=== PATIENT | female | born 1950 | race Caucasian/White ===

== ENCOUNTER 2018-07-28 13:46 | Inpatient (IN) ==
[2018-07-28] MEDS ORDERED: LORazepam 1 MG Tablet PO ONE (14:40)
--- NOTE | 2018-07-28 14:40 | ED ---
HPI General Chief complaint: Psychiatric Symptoms Stated complaint: Time Seen by Provider: 07/28/18 14:35 History of Present Illness HPI narrative: 68-year-old female with a history of schizophrenia is brought to the emergency department under Phelps act for evaluation of erratic behavior and not taking her medications. Per the Phelps act report the patient's brother states that the patient has been acting strangely and not taking her medications. Patient denies any suicidal or homicidal ideations. Patient denies having any history of medical or psychiatric disease. Denies auditory or visual hallucinations. Denies alcohol or drug use. Denies any physical complaints. She is awake, alert and oriented x4. Related Data Home Medications Medication Instructions Recorded Confirmed Unable to Obtain Home Meds 07/28/18 07/28/18 Allergies Allergy/AdvReac Type Severity Reaction Status Date / Time No Known Allergies Allergy Verified 07/28/18 14:31 Review of Systems ROS: all other systems reviewed are negative PMFSH Social History Social History Substance History: No History of Abuse Second Hand Smoke Exposure: Yes Smoking Status: Current every day smoker Tobacco Type: Cigarettes How Often Do You Have a Drink Containing Alcohol: Monthly or less Recent Travel in [facility] within the Last 8 Weeks: No Recent Out of Country Travel within the Last 8 Weeks: No Immunization History Tetanus Immunization: Unsure Exam Narrative Exam Narrative: GENERAL: Well-nourished and well-developed pleasant patient in no acute distress who is nontoxic appearing. SKIN: Warm and dry. HEAD: Normocephalic and atraumatic. EYES: No injection, drainage, or hyphema noted. PERRLA. EOMI. ENT: No nasal drainage noted. Oropharynx is clear. NECK: Supple and the trachea is midline. CARDIOVASCULAR: Regular rate and rhythm. RESPIRATORY: Breath sounds are equal bilaterally with no accessory muscle use, wheezing, rhonchi, or crackles. GASTROINTESTINAL: Abdomen is soft, non-tender, and nondistended. MUSCULOSKELETAL: No obvious deformities, swelling, cyanosis, or ecchymosis is present throughout the upper and lower extremities. Patient has full range of motion without any signs of neurovascular compromise. Distal pulses are 2+ throughout. NEUROLOGICAL: Awake, alert, and oriented. Normal speech and gait. Cranial nerves are grossly intact. Course Initial Documented Vital Signs Temperature 98.4 F 07/28/18 14:02 Respiratory Rate 18 07/28/18 14:02 Blood Pressure 190/91 H 07/28/18 14:02 Pulse Oximetry 96 07/28/18 14:02 Last Documented Vital Signs Temperature 98.4 F 07/28/18 22:47 Pulse Rate 65 07/28/18 22:47 Respiratory Rate 16 07/28/18 22:47 Blood Pressure 157/70 H 07/28/18 22:47 Pulse Oximetry 99 07/28/18 22:47 Medical Decision Making MDM Narrative Medical decision making narrative: Patient presents under a Phelps act. Heart rate and blood pressure elevated however patient is currently agitated. Therefore Ativan 1 mg orally has been ordered. Physical examination is unremarkable. Patient has no medical complaints to report. Psych screen has been ordered. The laboratory results are unremarkable. The patient is medically cleared for psychiatric evaluation and disposition. Patient is noted to have leukocytes and bacteria in her urine. She is given Keflex 500 mg p.o. every 8 hours during her stay here in the ER. Patient will be continued on antibiotics on admission or discharge. Medical Screen Exam Complete: Yes Emergency Medical Condition: Yes Differential Diagnosis Differential Diagnosis: Differential: Depression versus adjustment reaction versus anxiety versus PTSD versus psychosis NOS versus mood disorder NOS versus substance induced mood disorder versus ODD versus adjustment reaction versus schizophrenia versus bipolar disorder versus schizoaffective versus electrolyte abnormality versus dementia versus malingering. Lab Data Result diagrams: 07/28/18 14:38 07/28/18 14:38 Lab Results 07/28/18 07/28/18 07/28/18 Range/Units 14:38 14:38 14:40 WBC 9.3 (4.0-11.0) th/mm3 RBC 4.96 (4.00-5.30) mil/mm3 Hgb 15.6 H (11.6-15.3) gm/dL Hct 44.4 (35.0-46.0) % MCV 89.6 (80.0-100.0) fL MCH 31.5 (27.0-34.0) pg MCHC 35.2 (32.0-36.0) % RDW 13.2 (11.6-17.2) % Plt Count 400 (150-450) th/mm3 MPV 6.7 L (7.0-11.0) fL Neut % (Auto) 79.7 H (16.0-70.0) % Lymph % (Auto) 14.6 (9.0-44.0) % [place] % (Auto) 5.0 (0.0-8.0) % Eos % (Auto) 0.5 (0.0-4.0) % Baso % (Auto) 0.2 (0.0-2.0) % Neut # (Auto) 7.4 (1.8-7.7) th/mm3 Lymph # (Auto) 1.4 (1.0-4.8) th/mm3 [place] # (Auto) 0.5 (0.0-0.9) th/mm3 Eos # (Auto) 0.0 (0.0-0.4) th/mm3 Baso # (Auto) 0.0 (0.0-0.2) th/mm3 WBC Differential . Differential Comment Auto diff final Sodium 136 (136-145) meq/L Potassium 4.1 (3.5-5.1) meq/L Chloride 100 (98-107) meq/L Carbon Dioxide 28.3 (21.0-32.0) meq/L Anion Gap 8 (5-15) meq/L BUN 8 (7-18) mg/dL Creatinine 0.73 (0.50-1.00) mg/dL Estimated GFR 79 L (>89) mL/min Random Glucose 98 (74-106) mg/dL Calcium 9.0 (8.5-10.1) mg/dL Magnesium 2.2 (1.5-2.5) mg/dL Total Bilirubin 0.8 (0.2-1.0) mg/dL AST 20 (15-37) U/L ALT 23 (10-53) U/L Alkaline Phosphatase 99 (45-117) U/L Total Protein 7.7 (6.4-8.2) g/dL Albumin 3.9 (3.4-5.0) g/dL TSH 3.190 (0.358-3.740) uIU/mL Urine Color Straw (Yellw/Straw) Urine Clarity Clear (Clear) Urine pH 7.0 (5.0-8.5) Ur Specific [place] 1.004 (1.002-1.035) Urine Protein Negative (Neg-Trace) mg/dL Urine Glucose (UA) Negative (Negative) mg/dL Urine Ketones Negative (Negative) mg/dL Urine Occult Blood Negative (Negative) Urine Nitrate Negative (Negative) Urine Bilirubin Negative (Negative) Urine Urobilinogen Less than 2 (Less than 2) mg/dL Ur Leukocyte Esterase Moderate H (Negative) Urine RBC Less than 1 (0-3) /hpf Urine WBC 26 H (0-5) /hpf Ur Squamous Epith Cells 1 (0-5) /hpf Urine Bacteria Rare H (None) /hpf Micro UA Comment Culture indicated Ur Microscopic Review Not Reportable Urine Culture Comments Culture indicated Urine Opiates Screen (Neg) Ur Barbiturates Screen (Neg) Ur Amphetamines Screen (Neg) U Benzodiazepines Scrn (Neg) Urine Cocaine Screen (Neg) U Cannabinoids Screen (Neg) Serum Alcohol Less than 3 (0-5) mg/dL 07/28/18 Range/Units 14:40 WBC (4.0-11.0) th/mm3 RBC (4.00-5.30) mil/mm3 Hgb (11.6-15.3) gm/dL Hct (35.0-46.0) % MCV (80.0-100.0) fL MCH (27.0-34.0) pg MCHC (32.0-36.0) % RDW (11.6-17.2) % Plt Count (150-450) th/mm3 MPV (7.0-11.0) fL Neut % (Auto) (16.0-70.0) % Lymph % (Auto) (9.0-44.0) % [place] % (Auto) (0.0-8.0) % Eos % (Auto) (0.0-4.0) % Baso % (Auto) (0.0-2.0) % Neut # (Auto) (1.8-7.7) th/mm3 Lymph # (Auto) (1.0-4.8) th/mm3 [place] # (Auto) (0.0-0.9) th/mm3 Eos # (Auto) (0.0-0.4) th/mm3 Baso # (Auto) (0.0-0.2) th/mm3 WBC Differential Differential Comment Sodium (136-145) meq/L Potassium (3.5-5.1) meq/L Chloride (98-107) meq/L Carbon Dioxide (21.0-32.0) meq/L Anion Gap (5-15) meq/L BUN (7-18) mg/dL Creatinine (0.50-1.00) mg/dL Estimated GFR (>89) mL/min Random Glucose (74-106) mg/dL Calcium (8.5-10.1) mg/dL Magnesium (1.5-2.5) mg/dL Total Bilirubin (0.2-1.0) mg/dL AST (15-37) U/L ALT (10-53) U/L Alkaline Phosphatase (45-117) U/L Total Protein (6.4-8.2) g/dL Albumin (3.4-5.0) g/dL TSH (0.358-3.740) uIU/mL Urine Color (Yellw/Straw) Urine Clarity (Clear) Urine pH (5.0-8.5) Ur Specific [place] (1.002-1.035) Urine Protein (Neg-Trace) mg/dL Urine Glucose (UA) (Negative) mg/dL Urine Ketones (Negative) mg/dL Urine Occult Blood (Negative) Urine Nitrate (Negative) Urine Bilirubin (Negative) Urine Urobilinogen (Less than 2) mg/dL Ur Leukocyte Esterase (Negative) Urine RBC (0-3) /hpf Urine WBC (0-5) /hpf Ur Squamous Epith Cells (0-5) /hpf Urine Bacteria (None) /hpf Micro UA Comment Ur Microscopic Review Urine Culture Comments Urine Opiates Screen Neg (Neg) Ur Barbiturates Screen Neg (Neg) Ur Amphetamines Screen Neg (Neg) U Benzodiazepines Scrn Neg (Neg) Urine Cocaine Screen Neg (Neg) U Cannabinoids Screen Neg (Neg) Serum Alcohol (0-5) mg/dL Discharge Plan Discharge Disposition Patient Disposition: Sign Out(ED Internal Use Only) Discharge Condition Condition: Stable Discharge Details Diagnosis: Schizophrenia, UTI (urinary tract infection) Physicians Team ED Provider: Dary Aburto ED Midlevel Provider: Pro Baldwin Primary Care Provider: UNKNOWN, Rxs /Orders / Referrals /Forms Prescriptions: No Action Unable to Obtain Home Meds RF: 0 Status ED Status: Medically Cleared
[2018-07-28 15:19] LABS: Baso % (Auto) 0.2 % (0.0-2.0); Eos % (Auto) 0.5 % (0.0-4.0); Hematocrit 44.4 % (35.0-46.0); Hemoglobin 15.6 gm/dL (11.6-15.3); Lymph # (Auto) 1.4 th/mm3 (1.0-4.8); Lymph % (Auto) 14.6 % (9.0-44.0); Mean Corpuscular HGB Conc 35.2 % (32.0-36.0); Mean Corpuscular Hemoglobin 31.5 pg (27.0-34.0); Mean Corpuscular Volume 89.6 fL (80.0-100.0); Mean Platelet Volume 6.7 fL (7.0-11.0); Mono # (Auto) 0.5 th/mm3 (0.0-0.9); Neut # (Auto) 7.4 th/mm3 (1.8-7.7); Neut % (Auto) 79.7 % (16.0-70.0); Platelet Count 400 th/mm3 (150-450); Red Blood Count 4.96 mil/mm3 (4.00-5.30); Red Cell Distribution Width 13.2 % (11.6-17.2); White Blood Count 9.3 th/mm3 (4.0-11.0)
[2018-07-28 15:56] LABS: Alkaline Phosphatase 99 U/L (45-117); Total Protein 7.7 g/dL (6.4-8.2)
[2018-07-28 15:57] LABS: Alanine Aminotransferase 23 U/L (10-53); Albumin 3.9 g/dL (3.4-5.0); Anion Gap 8 meq/L (5-15); Aspartate Aminotransferase 20 U/L (15-37); Blood Urea Nitrogen 8 mg/dL (7-18); Carbon Dioxide 28.3 meq/L (21.0-32.0); Chloride 100 meq/L (98-107); Glomerular Filtration Rate 79 mL/min (>89); Glucose,Random 98 mg/dL (74-106); Magnesium 2.2 mg/dL (1.5-2.5); Potassium 4.1 meq/L (3.5-5.1); Sodium 136 meq/L (136-145)
[2018-07-28 19:45] LABS: Bacteria,Urine Rare /hpf; Bilirubin,Urine Negative (Negative); Clarity,Urine Clear (Clear); Color,Urine Straw (Yellw/Straw); Glucose,Urine (UA) Negative (Negative); Leukocyte Esterase,Urine Moderate (Negative); Nitrite,Urine Negative (Negative); Specific Gravity,Urine 1.004 (1.002-1.035); Squamous Epithelial Cell,Urine 1 /hpf (0-5)
[2018-07-28 19:51] LABS: Amphetamine Screen,Urine Neg (Neg); Barbiturate Screen,Urine Neg (Neg)
[2018-07-28 19:52] LABS: Cannabinoid Screen,Urine Neg (Neg); Cocaine Screen,Urine Neg (Neg)
[2018-07-28 20:00] LABS: Opiate Screen,Urine Neg (Neg)
[2018-07-29] MEDS ORDERED: LORazepam 1 MG Tablet PO PRN (11:05)
[2018-07-29] MEDS ORDERED: Haloperidol Inj 5 MG/ML Ampul IV.PUSH PRN (11:05)
[2018-07-29] MEDS ORDERED: Bisacodyl 10 MG Supp RECTAL PRN (11:05)
[2018-07-29] MEDS ORDERED: Aluminum/Magnesium/Simethacone Susp 30 ML UDC PO PRN (11:05)
--- NOTE | 2018-07-29 13:01 | P.HPPSY ---
Provisional Diagnosis Admission Date: July 29, 2018 11:06 [place] I.: Unspecified psychosis Competence Certification of Person's Competence To Provide Express and Informed Consent I have personally examined Jenny Croft, a person being served at [facility] on, July 29, 2018 1255. Express and informed consent means consent voluntarily given in writing, by a competent person, after sufficient explanation and disclosure of the subject matter involved to enable the person to make a knowing and willful decision without any element of force, fraud, deceit, duress, or other form of constraint or coercion. This person is 18 years of age or older, is not now known to be incompetent to consent to treatment with a guardian advocate, and does not have a health care surrogate or proxy currently making medical treatment decisions. I have found this person to be one of the following: [] Competent to provide express and informed consent, as defined above, for voluntary admission to this facility and is competent to provide express and informed consent for treatment. He/she has the consistent capacity to make well reasoned, willful, and knowing decisions concerning his or her medical or mental health treatment. The person fully and consistently understands the purpose of the admission for examination/placement and is fully capable of personally exercising all rights assured [place] [] Incompetent to provide express and informed consent to voluntary admission, and this is incompetent to provide express and informed consent to treatment. The person must be transferred to involuntary status and a petition for a guardian advocate filed with the Circuit Court. [x] Refusing to provide express and informed consent to voluntary admission but is competent to provide express and informed consent for treatment. The person must be discharged or transferred to involuntary status. Form shall be completed within 24 hours of a person's arrival at the receiving facility and filed in the clinical record of each person: 1. Admitted on a voluntary basis 2. Permitted to provide express and informed consent to his/her own treatment 3. Allowed to transfer from involuntary to voluntary status 4. Prior to permitting a person to consent to his or her own treatment after having been previously found incompetent to consent to treatment. History of Present Illness Capacity: Has capacity History of Present Illness: The patient is a 68-year-old woman, domiciled with family, she is , but , 2 kids, she has reported psychiatric history of schizophrenia, she denies history of substance abuse, alcohol use, denies medical history, who is brought to the emergency department under Phelps act for evaluation of erratic behavior and not taking her medications. Per the Phelps act report the patient's brother states that the patient has been acting strangely and not taking her medications. Patient denies any suicidal or homicidal ideations. Patient denies having any history of medical or psychiatric disease. Denies auditory or visual hallucinations. Denies alcohol or drug use. Denies any physical complaints. She is awake, alert and oriented x4. The patient says that she does not know what she is doing here. She has very poor insight of her psychiatric condition. She has been selectively mute. When I asked her about her psychiatric history, she says that she does not want to talk about it. She is very irritable, verbally hostile. No collateral information available at this moment. As per nurse in charge, the patient has been mostly inside her room, at times she is not walking in the ER, internally preoccupied, talking to herself, very irritable refusing to speak with the nurses. PPHx: Schizophrenia, unknown details PMHx: She denies medical history Family Hx: Denies family psychiatric history Substance Hx: Denies the use of illegal drugs or alcohol Social Hx: Patient is domiciled with family members, 2 kids, but - Inpatient Certification I certify that the inpatient services were ordered in accordance with Medicare regulations governing the order. This includes certification that hospital inpatient services are reasonable and necessary and in the case of services not specified as inpatient-only under 42 CFR 419.22(n), that they are appropriately provided as inpatient services in accordance to with the 2-midnight benchmark under 43 CFR 412.3(e) I certify that inpatient psychiatric hospital services are medically necessary. Evaluation and treatment and/or diagnostic testing are expected to improve the patient's condition. The patient needs on a daily basis, active treatment furnished directly by or requiring the supervision of inpatient psychiatric facility personnel. Estimated Total Length of Stay (Days): 7 Plans for Post Hospital Care: Home PMFSH - History History Provided By: Patient - Tobacco History Second Hand Smoke Exposure: Yes Tobacco Use In Past 30 Days: Yes Smoking Status: Current every day smoker Tobacco Type: Cigarettes - Alcohol History How Often Do You Have a Drink Containing Alcohol: Monthly or less - Substance Use History Substance History: No History of Abuse - Travel History Recent Travel in the [place] Within the Last 8 Weeks: No Recent Travel Out of the Country Within the Last 8 Weeks: No - Immunization History Tetanus Immunization: Unsure Medications and Allergies Active Medications: Active Medications Al Hydrox/Mg Hydrox/Simethicone (Mag-Al Plus Susp Liq) 30 ml PO Q6H PRN PRN Reason: DYSPEPSIA Al Hydroxide/Mg Hydroxide (Milk Of Magnesia Liq) 30 ml PO Q12H PRN PRN Reason: Mild Constipation Bisacodyl (Dulcolax Supp) 10 mg RECTAL DAILY PRN PRN Reason: SEVERE CONSITIPATION Cephalexin Monohydrate (Keflex) 500 mg PO Q8HR ZACHARY Last Admin: 07/29/18 12:28 Dose: Not Given Flumazenil (Romazicon Inj) 0.2 mg IV.PUSH Q1M PRN PRN Reason: OVERSEDATION Haloperidol Lactate (Haldol Inj) 1 mg IV.PUSH Q15M PRN PRN Reason: for severe agitation Lactulose (Lactulose Liq) 30 ml PO DAILY PRN PRN Reason: SEVERE CONSITIPATION Lorazepam (Ativan) 1 mg PO Q4H PRN PRN Reason: for CIWA 8-10 Lorazepam (Ativan) 2 mg PO Q2H PRN PRN Reason: for CIWA 11-14 Lorazepam (Ativan Inj) 2 mg IV.PUSH Q2H PRN PRN Reason: for CIWA 11-14 Lorazepam (Ativan Inj) 2 mg IV.PUSH Q1H PRN PRN Reason: for CIWA 15-20 Lorazepam (Ativan Inj) 2 mg IV.PUSH Q15M PRN PRN Reason: for CIWA > 20 Lorazepam (Ativan Inj) 1 mg IV.PUSH Q4H PRN PRN Reason: for CIWA 8-10 Quetiapine Fumarate (Seroquel) 25 mg PO BID ZACHARY Senna/Docusate Sodium (Rachell-Colace) 1 tab PO BID ZACHARY Sennosides (Senokot) 17.2 mg PO Q12H PRN PRN Reason: Moderate Constipation Allergies Allergy/AdvReac Type Severity Reaction Status Date / Time No Known Allergies Allergy Verified 07/28/18 14:31 Home Medications Medication Instructions Recorded Confirmed Type fluphenazine HCl 10 mg PO HS 07/29/18 07/29/18 History losartan 50 mg PO DAILY 07/29/18 07/29/18 History metformin 500 mg PO BID 07/29/18 07/29/18 History trihexyphenidyl 2 mg PO HS 07/29/18 07/29/18 History Results - Labs CBC & Chem 7: 07/28/18 14:38 07/28/18 14:38 Labs: Laboratory Results - last 24 hr 07/28/18 07/28/18 07/28/18 14:38 14:38 14:40 WBC 9.3 RBC 4.96 Hgb 15.6 H Hct 44.4 MCV 89.6 MCH 31.5 MCHC 35.2 RDW 13.2 Plt Count 400 MPV 6.7 L Neut % (Auto) 79.7 H Lymph % (Auto) 14.6 [place] % (Auto) 5.0 Eos % (Auto) 0.5 Baso % (Auto) 0.2 Neut # (Auto) 7.4 Lymph # (Auto) 1.4 [place] # (Auto) 0.5 Eos # (Auto) 0.0 Baso # (Auto) 0.0 WBC Differential . Differential Comment Auto diff final Sodium 136 Potassium 4.1 Chloride 100 Carbon Dioxide 28.3 Anion Gap 8 BUN 8 Creatinine 0.73 Estimated GFR 79 L Random Glucose 98 Calcium 9.0 Magnesium 2.2 Total Bilirubin 0.8 AST 20 ALT 23 Alkaline Phosphatase 99 Total Protein 7.7 Albumin 3.9 TSH 3.190 Urine Color Straw Urine Clarity Clear Urine pH 7.0 Ur Specific [place] 1.004 Urine Protein Negative Urine Glucose (UA) Negative Urine Ketones Negative Urine Occult Blood Negative Urine Nitrate Negative Urine Bilirubin Negative Urine Urobilinogen Less than 2 Ur Leukocyte Esterase Moderate H Urine RBC Less than 1 Urine WBC 26 H Ur Squamous Epith Cells 1 Urine Bacteria Rare H Micro UA Comment Culture indicated Ur Microscopic Review Not Reportable Urine Culture Comments Culture indicated Urine Opiates Screen Ur Barbiturates Screen Ur Amphetamines Screen U Benzodiazepines Scrn Urine Cocaine Screen U Cannabinoids Screen Serum Alcohol Less than 3 07/28/18 14:40 WBC RBC Hgb Hct MCV MCH MCHC RDW Plt Count MPV Neut % (Auto) Lymph % (Auto) [place] % (Auto) Eos % (Auto) Baso % (Auto) Neut # (Auto) Lymph # (Auto) [place] # (Auto) Eos # (Auto) Baso # (Auto) WBC Differential Differential Comment Sodium Potassium Chloride Carbon Dioxide Anion Gap BUN Creatinine Estimated GFR Random Glucose Calcium Magnesium Total Bilirubin AST ALT Alkaline Phosphatase Total Protein Albumin TSH Urine Color Urine Clarity Urine pH Ur Specific [place] Urine Protein Urine Glucose (UA) Urine Ketones Urine Occult Blood Urine Nitrate Urine Bilirubin Urine Urobilinogen Ur Leukocyte Esterase Urine RBC Urine WBC Ur Squamous Epith Cells Urine Bacteria Micro UA Comment Ur Microscopic Review Urine Culture Comments Urine Opiates Screen Neg Ur Barbiturates Screen Neg Ur Amphetamines Screen Neg U Benzodiazepines Scrn Neg Urine Cocaine Screen Neg U Cannabinoids Screen Neg Serum Alcohol Exam Vital signs: Vital Signs 07/28/18 14:02 07/28/18 14:06 07/28/18 18:18 Temperature 98.4 F 98.4 F 98.8 F Pulse Rate 102 H 78 Respiratory Rate 18 18 18 Blood Pressure 190/91 H 190/91 H 154/72 H Pulse Oximetry 96 96 100 07/28/18 22:47 07/29/18 12:26 Temperature 98.4 F 98.4 F Pulse Rate 65 67 Respiratory Rate 16 18 Blood Pressure 157/70 H 147/68 H Pulse Oximetry 99 98 Intake & Output 07/28/18 07/29/18 07/29/18 18:59 06:59 18:59 Weight 63.503 kg Mental Status Examination Appearance: Appropriate Consciousness: Alert Orientation: x4 Motor Activity: Normal gait Speech: Hesitant Language: Adequate Fund of Knowledge: Adequate Attention and Concentration: Adequate Memory: Unremarkable Mood: Appropriate Affect: Appropriate Thought Process & Associations: Intact Thought Content: Appropriate Hallucination Type: None Delusion Type: None Suicidal Ideation: No Suicidal Plan: No Suicidal Intention: No Homicidal Ideation: No Homicidal Plan: No Homicidal Intention: No Insight: Poor Judgment: Poor Assessment and Plan - Assessment (1) Schizophrenia Code(s): F20.9 - Schizophrenia, unspecified Status: Acute - Plan Plan: As per Phelps act the patient has history of schizophrenia, has been allegedly bizarre, not being herself, not taking her medications. On my psychiatric evaluation the patient is selectively mute, poorly cooperative, demonstrate a very poor insight of her psychiatric conditions. She has been described as an internally preoccupied, disruptive in the unit. We do not have details about her psychiatric history. Will be kept for psychiatric admission for stabilization and safety. We will start Seroquel 25 mg twice daily. Collateral information is crucial to complete psychiatric assessment. Transfer to 2600 unit. Will consult psychiatry for second opinion. Justification for Continued Inpatient Stay: To be admitted. (1) Schizophrenia Qualifiers: Schizophrenia type: unspecified Qualified Code(s): F20.9 - Schizophrenia, unspecified
[2018-07-29] MEDS: QUEtiapine 25 MG Tablet PO SCH (21:19)
[2018-07-29] MEDS: Senna/Docusate Sodium 8.6/50 MG Tablet PO SCH (21:20)
--- NOTE | 2018-07-30 13:59 | P.PNPSY ---
Subjective Remarks: This is a request for second opinion. Admission note was reviewed and I agree with the history. Patient was seen and case was discussed with nursing. Patient remains irritable and oppositional during the interview. She is disheveled and responding to internal stimuli. She is a poor historian and refusing to answer most questions Review of Systems All other systems reviewed negative except as stated in HPI Mental Status Examination Appearance: Appropriate Consciousness: Alert Orientation: x4 Motor Activity: Normal gait Speech: Hesitant Language: Adequate Fund of Knowledge: Adequate Attention and Concentration: Adequate Memory: Unremarkable Mood: Appropriate Affect: Appropriate Thought Process & Associations: Intact Thought Content: Appropriate Hallucination Type: None Delusion Type: None Suicidal Ideation: No Suicidal Plan: No Suicidal Intention: No Homicidal Ideation: No Homicidal Plan: No Homicidal Intention: No Insight: Poor Judgment: Poor Assessment and Plan - Assessment (1) Schizophrenia Code(s): F20.9 - Schizophrenia, unspecified Status: Acute - Plan Plan: I agree with the first opinion to continue petition. Criteria include acute psychosis Justification for Continued Inpatient Stay: Patient would decompensate in a less restrictive setting (1) Schizophrenia Qualifiers: Schizophrenia type: unspecified Qualified Code(s): F20.9 - Schizophrenia, unspecified
[2018-07-30] MEDS: Senna/Docusate Sodium 8.6/50 MG Tablet PO SCH ×2 (18:00→22:01)
[2018-07-30] MEDS: QUEtiapine 25 MG Tablet PO SCH ×2 (18:00→22:01)
[2018-07-31] MEDS: Senna/Docusate Sodium 8.6/50 MG Tablet PO SCH ×2 (11:34→22:17)
[2018-07-31] MEDS: QUEtiapine 25 MG Tablet PO SCH (11:34)
--- NOTE | 2018-07-31 13:19 | P.PNPSY ---
Subjective Remarks: Patient remains irritable and angry and oppositional. She is refusing her Seroquel. She is minimally engaged during the interview, poor eye contact, disheveled, continues to have poor insight concerning her admission and her mental health. Claims she is not hearing voices but could be responding to internal stimuli Review of Systems All other systems reviewed negative except as stated in HPI Mental Status Examination Appearance: Appropriate Consciousness: Alert Orientation: x4 Motor Activity: Normal gait Speech: Hesitant Language: Adequate Fund of Knowledge: Adequate Attention and Concentration: Adequate Memory: Unremarkable Mood: Angry, Oppositional Affect: Blunt Thought Process & Associations: Intact Thought Content: Delusional Hallucination Type: None Delusion Type: Paranoid (Could be responding to internal stimuli) Suicidal Ideation: No Suicidal Plan: No Suicidal Intention: No Homicidal Ideation: No Homicidal Plan: No Homicidal Intention: No Insight: Poor Judgment: Poor Assessment and Plan - Assessment (1) Schizophrenia Code(s): F20.9 - Schizophrenia, unspecified Status: Acute - Plan Plan: We will hold patient's medications because we will change her capacity to make decisions given her noncompliance with medications .we will change patient's competence to where she is not competent for medications and a proxy will be found. The purpose is to provide an antipsychotic that could be injected if she refuses p.o. dose. Given her history of schizophrenia Justification for Continued Inpatient Stay: Patient would decompensate in a less restrictive setting (1) Schizophrenia Qualifiers: Schizophrenia type: unspecified Qualified Code(s): F20.9 - Schizophrenia, unspecified
[2018-08-01] MEDS: Senna/Docusate Sodium 8.6/50 MG Tablet PO SCH ×2 (08:45→21:29)
[2018-08-01 09:18] LABS: Calcium 9.3 mg/dL (8.5-10.1)
[2018-08-01 09:20] LABS: Chol/HDL Ratio 4.37 Ratio; HDL Cholesterol 54.6 mg/dL (40.0-60.0)
[2018-08-01] MEDS ORDERED: QUEtiapine 25 MG Tablet PO SCH (10:13)
--- NOTE | 2018-08-01 10:17 | P.PNPSY ---
Subjective Remarks: Patient was seen today for psychiatric reevaluation. The patient continues to be guarded, minimally engageable in a conversation. Refuses to talk to me. Requesting to be discharged. Does not answer to any of my questions. She has been reported to be quite isolated, no answering questions, internally preoccupied, talking to herself. Mental Status Examination Appearance: Appropriate Consciousness: Alert Orientation: x4 Motor Activity: Normal gait Speech: Hesitant Language: Adequate Fund of Knowledge: Adequate Attention and Concentration: Adequate Memory: Unremarkable Mood: Angry, Oppositional Affect: Blunt Thought Process & Associations: Intact Thought Content: Delusional Hallucination Type: None Delusion Type: Bizarre Suicidal Ideation: No Suicidal Plan: No Suicidal Intention: No Homicidal Ideation: No Homicidal Plan: No Homicidal Intention: No Insight: Fair Judgment: Impulsive Assessment and Plan - Assessment (1) Schizophrenia Code(s): F20.9 - Schizophrenia, unspecified Status: Acute - Plan Plan: Patient reported as guarded and minimally engageable during the weekend, today seems to be doing better. We will increase Seroquel to 50 mg twice daily. Continue psychiatric hospitalization for stabilization. Support, motivation, psych education provided. Justification for Continued Inpatient Stay: Continue psychiatric admission for stabilization. (1) Schizophrenia Qualifiers: Schizophrenia type: unspecified Qualified Code(s): F20.9 - Schizophrenia, unspecified
[2018-08-01 17:02] LABS: Hemoglobin A1c 5.8 % (4.3-6.0)
[2018-08-02] MEDS: Senna/Docusate Sodium 8.6/50 MG Tablet PO SCH ×2 (08:47→22:52)
--- NOTE | 2018-08-02 13:20 | P.PNPSY ---
Subjective Remarks: The patient was seen today for psychiatric reevaluation. She was found isolated in her room. Continues to be selectively mute, very irritable, visibly paranoid, internally preoccupied. Today she tells me that she does not want to talk to me because "you are not a doctor, you are a terrorist [place] Patient becomes quite agitated during the evaluation, stands up from her bed and left the room. She has been consistently refusing medications. At moments agitated and intrusive in the unit, but not aggressive. She tells me that she has been living with her mother, but minutes later told me that her mother . She seems to be quite inconsistent, illogical, disorganized. Mental Status Examination Appearance: Appropriate Consciousness: Alert Orientation: x4 Motor Activity: Normal gait Speech: Hesitant Language: Adequate Fund of Knowledge: Adequate Attention and Concentration: Adequate Memory: Unremarkable Mood: Angry, Oppositional Affect: Blunt Thought Process & Associations: Intact Thought Content: Delusional Hallucination Type: None Delusion Type: Bizarre Suicidal Ideation: No Suicidal Plan: No Suicidal Intention: No Homicidal Ideation: No Homicidal Plan: No Homicidal Intention: No Insight: Fair Judgment: Impulsive Assessment and Plan - Assessment (1) Schizophrenia Code(s): F20.9 - Schizophrenia, unspecified Status: Acute - Plan Plan: Patient continues to show symptoms of psychosis, paranoia, internal preoccupation, disorganized and agitated behavior. Refusing medications. No collateral information available at the moment. family caseworker will continue trying to reach family members. Justification for Continued Inpatient Stay: Acutely psychotic, continue psychiatric hospitalization. (1) Schizophrenia Qualifiers: Schizophrenia type: unspecified Qualified Code(s): F20.9 - Schizophrenia, unspecified
[2018-08-03] MEDS: Senna/Docusate Sodium 8.6/50 MG Tablet PO SCH ×2 (08:32→21:39)
[2018-08-03] MEDS ORDERED: QUEtiapine 25 MG Tablet PO SCH (09:00)
--- NOTE | 2018-08-03 13:00 | P.PNPSY ---
Subjective Remarks: The patient was seen today for psychiatric reevaluation. The case was widely discussed with nurse in charge. On my psychiatric evaluation today the patient is found in her bed. As usual irritable, oppositional, initially refusing to talk. She is also paranoid, stating that people here looking at her, and trying to poisoned her. I was able today to de-escalate her Jessie. She told me many times that she does not want to talk, but with persistence, she was able to answer that she knows that she is in a hospital, she knows it is August 03, 2017. She knows who is the president of [place]. She does not know the reason she is in the hospital. She denies suicidal and homicidal ideation, she denies visual and auditory hallucinations. The patient is quite irritable, verbally hostile, using profanities very often. I was able to convince the patient to take her medications, Seroquel 50 mg twice daily, she agreed to sign the medication consent. She also asked for her medical medications losartan and metformin. Mental Status Examination Appearance: Appropriate Consciousness: Alert Orientation: x4 Motor Activity: Normal gait Speech: Hesitant Language: Adequate Fund of Knowledge: Adequate Attention and Concentration: Adequate Memory: Unremarkable Mood: Angry, Oppositional Affect: Blunt Thought Process & Associations: Intact Thought Content: Delusional Hallucination Type: None Delusion Type: Bizarre Suicidal Ideation: No Suicidal Plan: No Suicidal Intention: No Homicidal Ideation: No Homicidal Plan: No Homicidal Intention: No Insight: Fair Judgment: Impulsive Assessment and Plan - Assessment (1) Schizophrenia Code(s): F20.9 - Schizophrenia, unspecified Status: Acute - Plan Plan: Continues to be psychotic, paranoid, guarded, irritable, oppositional. But agree with taking medications today. We will start Seroquel 50 mg twice daily. Will start losartan 50 mg, metformin 500 mg, as the patient was taking before. Support, motivation, psych education provided. Justification for Continued Inpatient Stay: Acutely psychotic continue admission. (1) Schizophrenia Qualifiers: Schizophrenia type: unspecified Qualified Code(s): F20.9 - Schizophrenia, unspecified
[2018-08-03] MEDS: QUEtiapine 25 MG Tablet PO SCH ×2 (15:16→21:37)
--- NOTE | 2018-08-04 11:56 | P.PNPSY ---
Subjective Remarks: The patient was seen today for psychiatric reevaluation, she was also seen [place] [address]. In [address] the patient was quite intrusive, verbally hostile, expressing profanities in front of the resistor coater, she was disorganized, very bizarre. She was determined to continue psychiatric hospitalization involuntary and Lynda was appointed as a decision maker. The patient is a little more cooperative, she is more engageable in a conversation, but continues to be irritable, always upset, dysphoric, needs to use frequent profanities to communicate, but at least she has been taking her medications. She is fully oriented x3, she continues to deny suicidal and homicidal ideation , swallow and auditory hallucinations. She is definitely paranoid, wearing several layers of clothe, stating that she does not trust anybody, especially that she does not trust me. Mental Status Examination Appearance: Appropriate Consciousness: Alert Orientation: x4 Motor Activity: Normal gait Speech: Hesitant Language: Adequate Fund of Knowledge: Adequate Attention and Concentration: Adequate Memory: Unremarkable Mood: Angry, Oppositional Affect: Blunt Thought Process & Associations: Intact Thought Content: Delusional Hallucination Type: None Delusion Type: Bizarre Suicidal Ideation: No Suicidal Plan: No Suicidal Intention: No Homicidal Ideation: No Homicidal Plan: No Homicidal Intention: No Insight: Fair Judgment: Impulsive Assessment and Plan - Assessment (1) Schizophrenia Code(s): F20.9 - Schizophrenia, unspecified Status: Acute - Plan Plan: The patient is a still acutely psychotic, paranoid, suspicious, very irritable, with a very poor insight of her psychiatric condition. Continue current psychotropic regimen. Extensive support, motivation, psych education provided. Continue to try to find family member and a safe place to be discharged. Justification for Continued Inpatient Stay: Continue psychiatric admission. (1) Schizophrenia Qualifiers: Schizophrenia type: unspecified Qualified Code(s): F20.9 - Schizophrenia, unspecified
[2018-08-04] MEDS: QUEtiapine 25 MG Tablet PO SCH ×2 (11:58→20:58)
[2018-08-04] MEDS: Senna/Docusate Sodium 8.6/50 MG Tablet PO SCH ×2 (11:58→20:58)
--- NOTE | 2018-08-05 13:36 | P.PNPSY ---
Subjective Remarks: The patient was seen today for psychiatric reevaluation. Case was widely discussed with nursing charge. On my psychiatric evaluation the patient is found in the cabral of the unit. The patient today seems to be more engageable in a conversation, calm or, less irritable. She says that she feels better, that she is ready to be discharged. Reports that she has been taking her medications, denies side effects. Patient may a couple paranoid statements, stating that nurses do not like her, there is "some people here that have been looking at me". She denies suicidal and was ideation, denies visual and auditory hallucinations. The patient is fully oriented x3. No agitation, no aggressive behavior reported. However, she has been refusing on and off her medications. With moment of intrusiveness, but usually redirectable. Mental Status Examination Appearance: Appropriate Consciousness: Alert Orientation: x4 Motor Activity: Normal gait Speech: Hesitant Language: Adequate Fund of Knowledge: Adequate Attention and Concentration: Adequate Memory: Unremarkable Mood: Angry, Oppositional Affect: Blunt Thought Process & Associations: Intact Thought Content: Delusional Hallucination Type: None Delusion Type: Bizarre Suicidal Ideation: No Suicidal Plan: No Suicidal Intention: No Homicidal Ideation: No Homicidal Plan: No Homicidal Intention: No Insight: Fair Judgment: Impulsive Assessment and Plan - Assessment (1) Schizophrenia Code(s): F20.9 - Schizophrenia, unspecified Status: Acute - Plan Plan: Patient continues to show psychosis, paranoia, with some improvement in behavior. We will increase Seroquel to 100 mg twice daily for psychosis. Support, motivation, psych education provided. Justification for Continued Inpatient Stay: Continue psychiatric admission. (1) Schizophrenia Qualifiers: Schizophrenia type: unspecified Qualified Code(s): F20.9 - Schizophrenia, unspecified
[2018-08-05] MEDS: Senna/Docusate Sodium 8.6/50 MG Tablet PO SCH ×2 (18:38→20:40)
[2018-08-05] MEDS: QUEtiapine 25 MG Tablet PO SCH (20:40)
[2018-08-06] MEDS: Senna/Docusate Sodium 8.6/50 MG Tablet PO SCH ×2 (09:12→21:06)
[2018-08-06] MEDS: QUEtiapine 25 MG Tablet PO SCH ×2 (09:12→21:06)
--- NOTE | 2018-08-06 15:06 | P.PNPSY ---
Subjective Remarks: Reviewed electronic medical records and discussed case with staff. Follow-up was conducted in the patient's room with MARA Rush present. Patient was found lying in bed with the covers over her head. Her nurse advises she is refusing her Seroquel. Patient reports that she is "doing okay". She states that she slept well and his appetite's been good. She reports that her mood is good. The patient reports that she got "dizzy is hell". Explained to her that if she would take her Seroquel as ordered the side effects would likely resolve but since she continues to intermittently refuse them she will likely continue with side effects. Patient then goes on to state, "I do not believe in taking medications, I only take natural things". She then states that she really believes in chiropractor she does not believe an MDs. Mental Status Examination Appearance: Appropriate Consciousness: Alert Orientation: x4 Motor Activity: Normal gait Speech: Hesitant Language: Adequate Fund of Knowledge: Adequate Attention and Concentration: Adequate Memory: Unremarkable Mood: Angry, Oppositional Affect: Blunt Thought Process & Associations: Intact Thought Content: Delusional Hallucination Type: None Delusion Type: Bizarre Suicidal Ideation: No Suicidal Plan: No Suicidal Intention: No Homicidal Ideation: No Homicidal Plan: No Homicidal Intention: No Insight: Fair Judgment: Impulsive Assessment and Plan - Assessment (1) Schizophrenia Code(s): F20.9 - Schizophrenia, unspecified Status: Acute - Plan Plan: Patient will be reevaluated by the attending psychiatrist. Continue with current treatment plan. Patient continues to be irritable and noncompliant with her treatment plan. Justification for Continued Inpatient Stay: Moving this patient to a less restrictive environment would likely result in decompensation. (1) Schizophrenia Qualifiers: Schizophrenia type: unspecified Qualified Code(s): F20.9 - Schizophrenia, unspecified
[2018-08-07] MEDS: QUEtiapine 25 MG Tablet PO SCH ×2 (08:28→21:35)
[2018-08-07] MEDS: Senna/Docusate Sodium 8.6/50 MG Tablet PO SCH ×2 (08:28→21:30)
--- NOTE | 2018-08-07 11:01 | P.PNPSY ---
Subjective Remarks: Reviewed electronic medial record and discussed with nursing staff. Patient is angry and oppositional. When approach she states, " what the hell do you want." Nursing reports that she refuses her medications. She was walking the hallways are appears paranoid. She is looking behind herself as she walks. She is eating well. Nursing endorses that her sleep is intermittent. She talks to herself. May need to consider an alternative to medications by mouth. Review of Systems All other systems reviewed negative except as stated in HPI Mental Status Examination Appearance: Appropriate Consciousness: Alert Orientation: x4 Motor Activity: Normal gait Speech: Hesitant Language: Adequate Fund of Knowledge: Adequate Attention and Concentration: Adequate Memory: Unremarkable Mood: Angry, Oppositional Affect: Blunt Thought Process & Associations: Intact Thought Content: Delusional Hallucination Type: None Delusion Type: Bizarre Suicidal Ideation: No Suicidal Plan: No Suicidal Intention: No Homicidal Ideation: No Homicidal Plan: No Homicidal Intention: No Insight: Fair Judgment: Impulsive Assessment and Plan - Assessment (1) Schizophrenia Code(s): F20.9 - Schizophrenia, unspecified Status: Acute - Plan Plan: Patient will be reevaluated by the attending psychiatrist. Continue with current treatment plan. Patient continues to be irritable and noncompliant with her treatment plan. Justification for Continued Inpatient Stay: Moving patient to a less restrictive environment may result in her decompensation. (1) Schizophrenia Qualifiers: Schizophrenia type: unspecified Qualified Code(s): F20.9 - Schizophrenia, unspecified
[2018-08-08] MEDS: Senna/Docusate Sodium 8.6/50 MG Tablet PO SCH ×2 (09:49→20:49)
[2018-08-08] MEDS: QUEtiapine 25 MG Tablet PO SCH ×3 (09:49→20:49)
--- NOTE | 2018-08-08 17:11 | P.PNPSY ---
Subjective Remarks: Patient seen for follow-up, chart reviewed. Discussion with nursing staff reported that patient continued to refuse medications. As per chart, patient had refused medications when quetiapine had been increased to 100mg BID. Patient noted to be more irritable, paranoid, isolative since refusing medications. Patient was found lying on hospital bed, noted to be suspicious and guarded, superficially cooperative. Patient states that she is doing great , sleeping well with good appetite, denying AH but endorsing paranoid and delusional stating "someone who looks just like me got me here" as well as stating that there is someone that has attempted to hurt her in the past but did not elaborate. She was encouraged to comply with medications. Review of Systems All other systems reviewed negative except as stated in HPI Mental Status Examination Appearance: Appropriate Consciousness: Alert Orientation: x4 Motor Activity: Normal gait Speech: Hesitant Language: Adequate Fund of Knowledge: Adequate Attention and Concentration: Adequate Memory: Unremarkable Mood: Oppositional, Irritable Affect: Irritable, Other (guarded) Thought Process & Associations: Other (concrete) Thought Content: Bizarre thinking, Delusional Hallucination Type: None Delusion Type: Bizarre, Paranoid Suicidal Ideation: No Suicidal Plan: No Suicidal Intention: No Homicidal Ideation: No Homicidal Plan: No Homicidal Intention: No Insight: Fair Judgment: Impulsive Assessment and Plan - Assessment (1) Schizophrenia Code(s): F20.9 - Schizophrenia, unspecified Status: Acute - Plan Plan: Patient continues with paranoid delusions, bizarre delusions, refusing medications but did comply this morning. If patient continues to refuse will obtain consent from [facility] senior outside sales representative for IM back up. Continue current treatment, EKG ordered, continue to monitor mood and behavior. Discharge planning in progress. Justification for Continued Inpatient Stay: At risk for further decompensation at lower level of care. (1) Schizophrenia Qualifiers: Schizophrenia type: unspecified Qualified Code(s): F20.9 - Schizophrenia, unspecified
[2018-08-09] MEDS ORDERED: Haloperidol Inj 5 MG/ML Ampul IM PRN (10:00)
[2018-08-09] MEDS: QUEtiapine 25 MG Tablet PO SCH ×2 (12:41→20:59)
[2018-08-09] MEDS: Senna/Docusate Sodium 8.6/50 MG Tablet PO SCH ×2 (12:46→21:02)
[2018-08-09] MEDS: Haloperidol Inj 5 MG/ML Ampul IM SCH ×2 (12:47→21:02)
--- NOTE | 2018-08-09 15:13 | P.PNPSY ---
Subjective Remarks: Patient seen for follow-up, chart reviewed. Discussion with nursing staff reported that patient refusing EKG medications this morning. Patient was later encouraged to take medications and reluctantly agreed and later found lying in hospital bed with poor eye contact despite patient being able to engage verbally during interview, noted to have poor elaboration mostly 1 word answers. Patient states she slept well, eating and drinking well and her mood has been "better". Patient also was unable to engage further when provided names of family members or involved in her life such as her [id number] and brother who had agreed to take patient home upon discharge. Patient continues to have guarded affect as well as continued paranoid ideation on the unit and noncontributory in groups and activities. Patient continues to look disheveled and was encouraged to maintain her hygiene which she agreed. Review of Systems All other systems reviewed negative except as stated in HPI Mental Status Examination Appearance: Appropriate Consciousness: Alert Orientation: x4 Motor Activity: Normal gait Speech: Hesitant Language: Adequate Fund of Knowledge: Adequate Attention and Concentration: Adequate Memory: Unremarkable Mood: Oppositional, Irritable Affect: Irritable, Other (guarded) Thought Process & Associations: Other (concrete) Thought Content: Bizarre thinking, Delusional Hallucination Type: None Delusion Type: Bizarre, Paranoid Suicidal Ideation: No Suicidal Plan: No Suicidal Intention: No Homicidal Ideation: No Homicidal Plan: No Homicidal Intention: No Insight: Fair Judgment: Impulsive Assessment and Plan - Assessment (1) Schizophrenia Code(s): F20.9 - Schizophrenia, unspecified Status: Acute - Plan Plan: Patient continues with paranoid ideation, continues to be isolative and not engaging with staff or peers, not attending groups with marginal upkeep with hygiene. Patient had refused medication last evening as well as attempted to refuse this morning but was encouraged to take with reluctance patient had agreed. Haldol 2 mg twice daily IM as backup if patient refuses p.o. quetiapine. Patient healthcare surrogate and guardian advocate (MI[employer] sales representative) was contacted and consented to have Haldol as stated above to be started. We will continue to encourage patient to maintain adherence to treatment as well as to participate in groups and activities and maintain adequate hygiene. We will continue to monitor mood and behavior. Discharge planning in progress. Justification for Continued Inpatient Stay: At risk of further decompensation at lower level care. (1) Schizophrenia Qualifiers: Schizophrenia type: unspecified Qualified Code(s): F20.9 - Schizophrenia, unspecified
[2018-08-10] MEDS: QUEtiapine 25 MG Tablet PO SCH ×2 (08:42→21:21)
[2018-08-10] MEDS: Senna/Docusate Sodium 8.6/50 MG Tablet PO SCH ×2 (08:42→21:21)
[2018-08-10] MEDS: Haloperidol Inj 5 MG/ML Ampul IM SCH ×2 (08:51→21:24)
--- NOTE | 2018-08-10 11:23 | P.TTN ---
- Patient Problems Problems: 1. Discharge planning 2. Medication compliance 3. Knowledge deficit 4. Lack of coping skills - Progress Toward Goals Provider Present: Dr. Alem Hameed Provider Input: 08/10/18 Patient is taking her psychiatric meds, but refusing her medical medication, Poor insight, guarded. 08/08/18 Patient took her medication for two days, was improving but now refusing. Will continue to find relatives. Nurse Input: 08/10/18 Patient is selective in medication. Eating and sleeping well. 08/08/18 Non-compliant with medication for two days. Is eating and sleeping. Psychiatric Counselors Present: Other Psychiatric Therapist Input: 08/10/18 Patient found in dayroom. Patient presents verbally hostile, poor insight, selective in medication, however is not isolating as much in her room. Eating and sleeping ok. 08/08/18 Sent the police out to [place] and contacted patient's [id number] Kate Brizuela . Patient resides at [address] [place] [address]. Patient's 80 y/o recently left due to patient's behaviors. Patient has been in the hospital at [facility]. Eryn stated she would get monthly injections to help stabilize her. She receives 200 SSI/month. [id number] and brother will pick her up when discharged. Group Spec/RT/OT/FORD Present: Other Group Spec/RT/OT/FORD Input: 08/10/18 Patient does not attend groups. 08/08/18 No group or psychotherapy group attendance. - Documentation Teaching Recipient: Patient
--- NOTE | 2018-08-10 13:10 | P.PNPSY ---
Subjective Remarks: Patient seen for follow-up, chart reviewed. Discussion with nursing staff reported that patient slept well last evening there was concern of cheeking with medications and refusing medicines in general but accepting of quetiapine. Patient was found and ablated on the unit noted to be guarded and suspicious with noted patient to be disheveled. Patient was found in bed sitting with poor eye contact given concrete responses that he is she is feeling "all right" patient was encouraged to comply with treatment as well as to allow lab work and UA to monitor whether patient continues to have UTI that requires further treatment. Patient has up to now refuse antibiotic treatment for UTI and discussion of importance of addressing her UTIs with patient and was reviewed. Patient agreed to participate in group fresh air outside after interview. Review of Systems All other systems reviewed negative except as stated in HPI Mental Status Examination Appearance: Appropriate Consciousness: Alert Orientation: x4 Motor Activity: Normal gait Speech: Hesitant Language: Adequate Fund of Knowledge: Adequate Attention and Concentration: Adequate Memory: Unremarkable Affect: Irritable, Blunt, Other (guarded) Thought Process & Associations: Other (concrete) Thought Content: Bizarre thinking, Delusional Hallucination Type: None Delusion Type: Bizarre, Paranoid Suicidal Ideation: No Suicidal Plan: No Suicidal Intention: No Homicidal Ideation: No Homicidal Plan: No Homicidal Intention: No Insight: Fair Judgment: Impulsive Assessment and Plan - Assessment (1) Schizophrenia Code(s): F20.9 - Schizophrenia, unspecified Status: Acute - Plan Plan: Patient sent continues with paranoid delusions, guarded, suspicious, with limited interaction with staff but was able to attend group today and compliant with medications specifically quetiapine but refusing all of the medications. Patient was encouraged to comply with medication recommendations as well as workup to address ongoing UTI. Labs ordered as well as UA. We will continue current treatment. Continue monitor mood and behavior. Discharge planning in progress. Justification for Continued Inpatient Stay: At risk of further decompensation at lower level care. (1) Schizophrenia Qualifiers: Schizophrenia type: unspecified Qualified Code(s): F20.9 - Schizophrenia, unspecified
[2018-08-11 08:19] LABS: Baso % (Auto) 0.4 % (0.0-2.0); Eos # (Auto) 0.2 th/mm3 (0.0-0.4); Eos % (Auto) 2.8 % (0.0-4.0); Hemoglobin 14.8 gm/dL (11.6-15.3); Lymph # (Auto) 1.5 th/mm3 (1.0-4.8); Lymph % (Auto) 26.7 % (9.0-44.0); Mean Corpuscular HGB Conc 34.5 % (32.0-36.0); Mean Corpuscular Hemoglobin 30.8 pg (27.0-34.0); Mean Corpuscular Volume 89.2 fL (80.0-100.0); Mean Platelet Volume 7.1 fL (7.0-11.0); Mono # (Auto) 0.6 th/mm3 (0.0-0.9); Mono % (Auto) 9.9 % (0.0-8.0); Neut # (Auto) 3.5 th/mm3 (1.8-7.7); Neut % (Auto) 60.2 % (16.0-70.0); Platelet Count 273 th/mm3 (150-450); Red Blood Count 4.82 mil/mm3 (4.00-5.30); Red Cell Distribution Width 12.8 % (11.6-17.2); White Blood Count 5.8 th/mm3 (4.0-11.0)
[2018-08-11 08:47] LABS: Alanine Aminotransferase 12 U/L (10-53); Albumin 3.8 g/dL (3.4-5.0); Anion Gap 4 meq/L (5-15); Aspartate Aminotransferase 7 U/L (15-37); Blood Urea Nitrogen 15 mg/dL (7-18); Calcium 9.3 mg/dL (8.5-10.1); Carbon Dioxide 32.9 meq/L (21.0-32.0); Chloride 101 meq/L (98-107); Glomerular Filtration Rate 83 mL/min (>89); Glucose,Random 92 mg/dL (74-106); Potassium 4.3 meq/L (3.5-5.1); Sodium 138 meq/L (136-145)
[2018-08-11 08:49] LABS: Alkaline Phosphatase 72 U/L (45-117); Total Protein 7.3 g/dL (6.4-8.2)
[2018-08-11] MEDS: Haloperidol Inj 5 MG/ML Ampul IM SCH ×2 (08:54→21:09)
[2018-08-11] MEDS: QUEtiapine 25 MG Tablet PO SCH ×2 (08:54→21:07)
[2018-08-11] MEDS: Senna/Docusate Sodium 8.6/50 MG Tablet PO SCH ×2 (08:54→21:09)
[2018-08-11 15:34] LABS: Bilirubin,Urine Negative (Negative); Clarity,Urine Clear (Clear); Color,Urine Colorless (Yellw/Straw); Glucose,Urine (UA) Negative (Negative); Leukocyte Esterase,Urine Trace (Negative); Nitrite,Urine Negative (Negative); Specific Gravity,Urine 1.003 (1.002-1.035); Squamous Epithelial Cell,Urine <1 /hpf (0-5)
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
[2018-08-12] MEDS: QUEtiapine 25 MG Tablet PO SCH ×2 (08:48→20:47)
[2018-08-12] MEDS: Senna/Docusate Sodium 8.6/50 MG Tablet PO SCH ×2 (08:48→20:47)
[2018-08-12] MEDS: Haloperidol Inj 5 MG/ML Ampul IM SCH ×2 (08:54→20:49)
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
[2018-08-13] MEDS: QUEtiapine 25 MG Tablet PO SCH ×2 (08:46→20:23)
[2018-08-13] MEDS: Senna/Docusate Sodium 8.6/50 MG Tablet PO SCH ×3 (08:46→20:23)
[2018-08-13] MEDS: Haloperidol Inj 5 MG/ML Ampul IM SCH ×2 (10:13→20:26)
--- NOTE | 2018-08-13 14:10 | P.PNPSY ---
Subjective Chief Complaint: Follow-up treatment of schizophrenia Remarks: Patient seen for follow-up, chart reviewed, patient discussed with nursing staff ; we reviewed the patient's mood, thoughts, and behaviors from overnight and this morning. Nurse reports that patient slept 7 hours overnight. She is described as angry and frequently cursing at staff. She has been isolative to her room. Her affect is not congruent with her stated euthymic mood. She seems paranoid and guarded with others. The patient was seen lying in bed awake after lunch. She reports that she is doing good and feels safe on the unit but affect appears irritated. She was asked if she needed anything as she reports "I need some more close because I do not have shit." Mental Status Examination Appearance: Appropriate Consciousness: Alert Orientation: Person, Place, Date/Time Motor Activity: Normal gait Speech: Other (Slightly loud at times, cursing at times) Language: Adequate Fund of Knowledge: Adequate Attention and Concentration: Adequate Memory: Unremarkable Mood: Other ("great") Affect: Irritable, Other (Guarded, incongruent with mood) Thought Process & Associations: Other (concrete) Thought Content: Appropriate Hallucination Type: None Delusion Type: Paranoid Suicidal Ideation: No Suicidal Plan: No Suicidal Intention: No Homicidal Ideation: No Homicidal Plan: No Homicidal Intention: No Insight: Fair Judgment: Impulsive Assessment and Plan - Assessment (1) Schizophrenia Code(s): F20.9 - Schizophrenia, unspecified Status: Acute - Plan Plan: August 12, 2018: Patient continues with irritability, more compliant with medications as patient aware of IM backup and continues to require encouragement. She continues to be isolative, not attending groups but is caring for her hygiene. Continue current medications, continue to monitor mood and behavior. Discharge planning in progress. August 13, 2018: Fair response to treatment as the patient is compliant with oral medications but she continues to appear guarded and irritated despite her insistence that her mood is good and she is not having any symptoms of psychosis. Continue inpatient psychiatric treatment and stabilization. Continue current medications unchanged. Discharge planning in progress. Justification for Continued Inpatient Stay: Patient remains an elevated risk for self-harm by self neglect and will require further inpatient stabilization and preparation of a safe discharge plan. Moving patient to a less restrictive environment at this time may result in decompensation. (1) Schizophrenia Qualifiers: Schizophrenia type: unspecified Qualified Code(s): F20.9 - Schizophrenia, unspecified
[2018-08-14] MEDS: Senna/Docusate Sodium 8.6/50 MG Tablet PO SCH ×2 (09:11→21:00)
[2018-08-14] MEDS: Haloperidol Inj 5 MG/ML Ampul IM SCH ×2 (09:12→21:08)
[2018-08-14] MEDS: QUEtiapine 25 MG Tablet PO SCH (09:17)
--- NOTE | 2018-08-14 15:01 | P.PNPSY ---
Subjective Chief Complaint: Follow-up treatment of schizophrenia Remarks: Patient seen for follow-up, chart reviewed, patient discussed with nursing staff ; we reviewed the patient's mood, thoughts, and behaviors from overnight and this morning. Nurse reports that the patient was up all night did not get any sleep. She has been cooperative with medications and did not require her IM Haldol. Patient was seen sitting in the day room. She did not appears sleepy. She was very irritable and hostile with provider. Mental Status Examination Appearance: Appropriate Consciousness: Alert Orientation: Person, Place, Date/Time Motor Activity: Normal gait Speech: Other (Slightly loud at times, cursing at times) Language: Adequate Fund of Knowledge: Adequate Attention and Concentration: Adequate Memory: Unremarkable Mood: Other ("great") Affect: Irritable, Other (Guarded, incongruent with mood) Thought Process & Associations: Other (concrete) Thought Content: Appropriate Hallucination Type: None Delusion Type: Paranoid Suicidal Ideation: No Suicidal Plan: No Suicidal Intention: No Homicidal Ideation: No Homicidal Plan: No Homicidal Intention: No Insight: Fair Judgment: Impulsive Assessment and Plan - Assessment (1) Schizophrenia Code(s): F20.9 - Schizophrenia, unspecified Status: Acute - Plan Plan: August 12, 2018: Patient continues with irritability, more compliant with medications as patient aware of IM backup and continues to require encouragement. She continues to be isolative, not attending groups but is caring for her hygiene. Continue current medications, continue to monitor mood and behavior. Discharge planning in progress. August 13, 2018: Fair response to treatment as the patient is compliant with oral medications but she continues to appear guarded and irritated despite her insistence that her mood is good and she is not having any symptoms of psychosis. Continue inpatient psychiatric treatment and stabilization. Continue current medications unchanged. Discharge planning in progress. August 14, 2018: Unsatisfactory response to treatment, the patient remains disorganized and has had severe decreased need for sleep. Continue inpatient psychiatric treatment and stabilization. Increase Seroquel to 100 mg by mouth every morning and 200 mg by mouth at bedtime. Continue Haldol 2 mg twice a day IM as needed for refusal to take Seroquel by mouth. Discharge planning in progress. Justification for Continued Inpatient Stay: Patient remains an elevated risk for self-harm by self neglect and will require further inpatient stabilization and preparation of a safe discharge plan. Moving patient to a less restrictive environment at this time may result in decompensation. (1) Schizophrenia Qualifiers: Schizophrenia type: unspecified Qualified Code(s): F20.9 - Schizophrenia, unspecified
[2018-08-14 17:57] VITALS: RESP 16
[2018-08-14] MEDS: QUEtiapine 100 MG Tablet PO SCH (21:00)
[2018-08-15] MEDS: Senna/Docusate Sodium 8.6/50 MG Tablet PO SCH ×2 (09:56→20:27)
[2018-08-15] MEDS: QUEtiapine 100 MG Tablet PO SCH ×2 (09:56→20:27)
[2018-08-15] MEDS: Haloperidol Inj 5 MG/ML Ampul IM SCH ×2 (09:57→21:50)
--- NOTE | 2018-08-15 16:13 | P.PNPSY ---
Subjective Chief Complaint: Follow-up treatment of schizophrenia Remarks: Patient seen for follow-up, chart reviewed. Discussion with nursing staff reported that patient compliant with medications, continues to be irritable and reluctant to participate in groups and activities. Patient was found and ablated on unit noted to be continued with very suspicious and paranoid but was able to engage in interview. Patient continues also to be noted with irritability to do being in the hospital. She states she has not spoken to her family but has a nursing report was observed to be on the phone cursing at someone clear who she was being with. He reports sleeping well good appetite and that her mood has been "good" although saying this with affect of irritability. She states she has been going to groups. Patient continued denying perceptual services continues with paranoid ideation. Patient had recent increase in quetiapine which she is tolerating well. Review of Systems All other systems reviewed negative except as stated in HPI Mental Status Examination Appearance: Appropriate Consciousness: Alert Orientation: Person, Place, Date/Time Motor Activity: Normal gait Speech: Other (No longer yelling but noted to continue with irritability and cursing at times) Language: Adequate Fund of Knowledge: Adequate Attention and Concentration: Adequate Memory: Unremarkable Mood: Other ("Good") Affect: Irritable, Other (Guarded, incongruent with mood) Thought Process & Associations: Other (concrete) Thought Content: Appropriate Hallucination Type: None Delusion Type: Paranoid Suicidal Ideation: No Suicidal Plan: No Suicidal Intention: No Homicidal Ideation: No Homicidal Plan: No Homicidal Intention: No Insight: Fair Judgment: Impulsive Assessment and Plan - Assessment (1) Schizophrenia Code(s): F20.9 - Schizophrenia, unspecified Status: Acute - Plan Plan: Patient continues to have degree of paranoia but more engaging in interview. Patient tolerated recent increase in quetiapine therefore we will continue current treatment dose. We will continue monitor mood and behavior. We will continue to attempt to contact patient's family to arrange for a appropriate discharge planning. Patient encouraged to reach out to her family over the phone. Continue monitor mood and behavior. Discharge planning in progress. Justification for Continued Inpatient Stay: At risk of further decompensation at lower level care. (1) Schizophrenia Qualifiers: Schizophrenia type: unspecified Qualified Code(s): F20.9 - Schizophrenia, unspecified
[2018-08-16] MEDS: QUEtiapine 100 MG Tablet PO SCH ×2 (08:52→20:20)
[2018-08-16] MEDS: Senna/Docusate Sodium 8.6/50 MG Tablet PO SCH ×2 (08:53→20:22)
[2018-08-16] MEDS: Haloperidol Inj 5 MG/ML Ampul IM SCH ×2 (08:53→20:22)
--- NOTE | 2018-08-16 15:13 | P.PNPSY ---
Subjective Chief Complaint: Follow-up treatment of schizophrenia Remarks: Patient seen for follow up; chart reviewed. Discussion with nursing staff reported continues with some irritability, limited participate in groups, compliant with medications. Patient was found lying in hospital bed was able to engage more easily interview today noted to be less irritable slightly more engaging sponsors. Patient states that she is feeling "good" reports of recent alcohol, stating that she has been showering mostly throughout her hospital stay. Patient did mention that she has not consult with family in contrary to nursing staff observations some sad. Patient denies telephone numbers to contact them. Was able to contact family member connected team to patient's he states has been attempting to reach patient for several weeks now. Patient was able to speak about her past hobbies which included tennis, bowling , as well as embroidery. Patient was more easily amenable to participate in groups that she was let out to group activity and was noted to engage in video games but that was available. Review of Systems All other systems reviewed negative except as stated in HPI Mental Status Examination Appearance: Appropriate Consciousness: Alert Orientation: Person, Place, Date/Time Motor Activity: Normal gait Speech: Other (No longer yelling but noted to continue with irritability and cursing at times) Language: Adequate Fund of Knowledge: Adequate Attention and Concentration: Adequate Memory: Unremarkable Mood: Other ("Good") Affect: Irritable (Slightly less), Other (Guarded, incongruent with mood) Thought Process & Associations: Other (concrete) Thought Content: Appropriate Hallucination Type: None Delusion Type: Paranoid (Lessening) Suicidal Ideation: No Suicidal Plan: No Suicidal Intention: No Homicidal Ideation: No Homicidal Plan: No Homicidal Intention: No Insight: Fair Judgment: Impulsive Assessment and Plan - Assessment (1) Schizophrenia Code(s): F20.9 - Schizophrenia, unspecified Status: Acute - Plan Plan: Patient appears to be responding to current treatment noted with slight improvement in mood noted B less irritable slightly less guarded allowing for direction to group activities she participated in today. We will continue current treatment. We will continue to monitor with behavior. Treatment team planning family meeting this Wednesday to discuss discharge planning. Justification for Continued Inpatient Stay: At risk of further decompensation at lower level care. (1) Schizophrenia Qualifiers: Schizophrenia type: unspecified Qualified Code(s): F20.9 - Schizophrenia, unspecified
[2018-08-17] MEDS: QUEtiapine 100 MG Tablet PO SCH ×2 (08:56→21:12)
[2018-08-17] MEDS: Senna/Docusate Sodium 8.6/50 MG Tablet PO SCH ×2 (09:01→21:14)
[2018-08-17] MEDS: Haloperidol Inj 5 MG/ML Ampul IM SCH ×2 (09:01→21:13)
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
--- NOTE | 2018-08-17 17:35 | P.PNPSY ---
Subjective Chief Complaint: Follow-up treatment of schizophrenia Remarks: Patient seen for follow-up, chart reviewed. Discussion with nursing staff reported that patient med compliant, continues to be slightly upset that she is in the hospital but no behavioral disturbances, no agitation. Patient was found lying on hospital bed, calm and cooperative. Discussion of discharge plan was reviewed which she agreed to allow for home health services. She refuses to accept [facility] at this time but allowable to services in her home. She states sleeping well, good appetite, states attending groups, denies SI, HI, AVH or delusions. Review of Systems All other systems reviewed negative except as stated in HPI Mental Status Examination Appearance: Appropriate Consciousness: Alert Orientation: Person, Place, Date/Time Motor Activity: Normal gait Speech: Unremarkable Language: Adequate Fund of Knowledge: Adequate Attention and Concentration: Adequate Memory: Unremarkable Mood: Other ("Good") Affect: Irritable (minimal) Thought Process & Associations: Intact, Linear, Other (concrete) Thought Content: Appropriate Hallucination Type: None Delusion Type: Paranoid (minimal) Suicidal Ideation: No Suicidal Plan: No Suicidal Intention: No Homicidal Ideation: No Homicidal Plan: No Homicidal Intention: No Insight: Fair Judgment: Impulsive Assessment and Plan - Assessment (1) Schizophrenia Code(s): F20.9 - Schizophrenia, unspecified Status: Acute - Plan Plan: Patient continues to be preoccuped with discharge but compliant with medications , attending groups, caring for self-hygiene, denies SI or HI. Patient planned for possible discharge tomorrow back to her residence with home health services in place for support. Will continue current treatment, continue to monitor mood and behavior. Discharge planning in progress. Justification for Continued Inpatient Stay: At risk for further decompensation at lower level of care. (1) Schizophrenia Qualifiers: Schizophrenia type: unspecified Qualified Code(s): F20.9 - Schizophrenia, unspecified
[2018-08-18 05:46] VITALS: BP 113/60; PULSE 67; TEMP 97.8; O2SAT 98
[2018-08-18] MEDS: Senna/Docusate Sodium 8.6/50 MG Tablet PO SCH (09:12)
[2018-08-18] MEDS: QUEtiapine 100 MG Tablet PO SCH (09:12)
--- NOTE | 2018-08-18 09:54 | P.DCO ---
- Occupational Therapy Order: Evaluate and treat - Home Health Nursing Order: Signs/symptoms of disease process, Diabetic education, Medication education-adverse effect - Barrel Lathe Operator Inside Order: To evaluate: Support services Order: To provide: Long range planning - Case Management Consult Case Management Consult-Home Health: Yes - Certification I have seen patient Jenny Brizuela Prior on 08/18/18. My clinical findings support the need for the requested home health care services because: Medication compliance is questionable, Need for psychosocial assistance I certify that my clinical findings support that this patient is homebound because: Need for psychosocial assistance
[2018-08-18] MEDS: Haloperidol Inj 5 MG/ML Ampul IM SCH (10:59)
--- NOTE | 2018-08-18 20:21 | P.DSPSY ---
Psychiatry Discharge Summary Inpatient Psychiatric care?: Yes Advance Directives: No Mental Health Advance Directive: No Health Care Proxy: No - Admission Admission Date: July 29, 2018 11:06 - Admission Diagnosis (1) Schizophrenia Code(s): F20.9 - Schizophrenia, unspecified Brief History: The patient is a 68-year-old woman, domiciled with family, she is , but , 2 kids, she has reported psychiatric history of schizophrenia, she denies history of substance abuse, alcohol use, denies medical history, who is brought to the emergency department under [facility] act for evaluation of erratic behavior and not taking her medications. Per the [facility] [employer] act report the patient's brother states that the patient has been acting strangely and not taking her medications. Patient denies any suicidal or homicidal ideations. Patient denies having any history of medical or psychiatric disease. Denies auditory or visual hallucinations. Denies alcohol or drug use. Denies any physical complaints. She is awake, alert and oriented x4. The patient says that she does not know what she is doing here. She has very poor insight of her psychiatric condition. She has been selectively mute. When I asked her about her psychiatric history, she says that she does not want to talk about it. She is very irritable, verbally hostile. No collateral information available at this moment. As per nurse in charge, the patient has been mostly inside her room, at times she is not walking in the ER, internally preoccupied, talking to herself, very irritable refusing to speak with the nurses. PPHx: Schizophrenia, unknown details PMHx: She denies medical history Family Hx: Denies family psychiatric history Substance Hx: Denies the use of illegal drugs or alcohol Social Hx: Patient is domiciled with family members, 2 kids, but Tobacco Use In Past 30 Days: Yes How Often Do You Have a Drink Containing Alcohol: Monthly or less Hospital Course: The patient is a 68-year-old woman, domiciled with family, she is , but , 2 kids, she has reported psychiatric history of schizophrenia, she denies history of substance abuse, alcohol use, denies medical history, who is brought to the emergency department under [facility] [employer] [facility] act for evaluation of erratic behavior and not taking her medications and per the [facility] [employer] act report the patient's brother states that the patient has been acting strangely and not taking her medications which patient was admitted to the inpatient psychiatry unit for further evaluation and management. Patient was admitted to a locked, inpatient psychiatric unit. Appropriate precautions were in place throughout patient's hospital stay. Patient was seen and examined on the unit by psychiatry. Psychotropic medications were adjusted. There was no evidence of any suicidality or homicidality on the inpatient unit. Patient's mood improved with the benefit of psychopharmacological treatment and had no behavioral disturbance since admission. Patient was noted to have reached stable mood, noted to participate and engage in treatment and interact with staff adequately. Patient agreed to continue treatment, outpatient follow-up appointments for continuity of care, and allow for home health services to provide care at her home. Counselor has arranged discharge plan which patient will be taken home by brother. On the day of discharge: Patient seen and examined; chart reviewed. Case discussed with nurse and counselor. No behavioral issues overnight. On my examination today, the patient denies any suicidal homicidal ideation, intent or plan on direct questioning and contracts for safety. Patient denies any perceptional disturbances and no delusional material verbalized today. Patient denies any side effects from medication and has understanding of medication regimen and education. No physical complaints. Suicide and violence risk assessment on day of discharge both suggest lower imminent risk, and the patient's level of function is adequate for plan level of outpatient care. Patient has maximized benefit from this inpatient psychiatric hospital stay and will be discharged with discharge plan as arranged by counselor. Patient advised to return to psychiatric emergency room for any concerning psychiatric symptoms. Patient agrees with plan. - Discharge Discharge Date: 08/18/18 - Discharge Diagnosis (1) Schizophrenia Code(s): F20.9 - Schizophrenia, unspecified Status: Acute Discharge Disposition: Home - Discharge Instructions Discharge Diet: Heart Healthy Diet, Diabetic Diet Activities You Can Perform: Weight Bearing As Tolerat - Discharge Time > 30 minutes Mental Status Examination Appearance: Appropriate Consciousness: Alert Orientation: Person, Place, Date/Time Motor Activity: Normal gait Speech: Unremarkable Language: Adequate Fund of Knowledge: Adequate Attention and Concentration: Adequate Memory: Unremarkable Mood: Other ("Good") Affect: Appropriate Thought Process & Associations: Intact, Linear, Other (concrete) Thought Content: Appropriate Hallucination Type: None Delusion Type: None Suicidal Ideation: No Suicidal Plan: No Suicidal Intention: No Homicidal Ideation: No Homicidal Plan: No Homicidal Intention: No Insight: Fair Judgment: Impulsive Discharge/Advance Care Plan - Results Vital Signs: Last Vital Signs Temp 97.8 F 08/18/18 05:45 Pulse 67 08/18/18 05:45 Resp 16 08/18/18 05:45 BP 113/60 08/18/18 05:45 Pulse Ox 98 08/18/18 05:45 Lab Results: Laboratory Results Hemoglobin A1c 5.8 % (4.3-6.0) 08/01/18 08:30 Triglycerides 161 mg/dL (42-150) H 08/01/18 08:30 Cholesterol 239 mg/dL (120-200) H 08/01/18 08:30 LDL Cholesterol, Calc 152 mg/dL (0-99) H 08/01/18 08:30 HDL Cholesterol 54.6 mg/dL (40.0-60.0) 08/01/18 08:30 TSH 3.190 uIU/mL (0.358-3.740) 07/28/18 14:38 Urine Culture Comments Culture not ind 08/11/18 13:58 Summary of Procedures: none Pending Results: None - Medications Number of antipsychotic medications at discharge: 1 - Discharge Care Plan Goals to Promote Your Health: * To prevent worsening of your condition and complications * To maintain your health at the optimal level Directions to Meet Your Goals: Take your medications as prescribed Follow your dietary instruction Follow activity as directed Keep your appointments as scheduled Take your immunizations and boosters as scheduled If your symptoms worsen call your PCP, if no PCP go to Urgent Care Center or Emergency Room For 11/01 questions related to your inpatient stay or results of tests pending at discharge, please contact Dr. Hugh aHmeed MD at Smoking is Dangerous to Your Health. Avoid second hand smoking (1) Schizophrenia Qualifiers: Schizophrenia type: unspecified Qualified Code(s): F20.9 - Schizophrenia, unspecified (1) Schizophrenia Qualifiers: Schizophrenia type: unspecified Qualified Code(s): F20.9 - Schizophrenia, unspecified
== END 2018-08-18 17:00 | disposition home health service (06) | DRG 885 ==
LOC: EDBD → NEPJ 13:46 → NEDA 07-29 11:06 → H260 07-29 13:13
PROVIDERS: ADMIT Student in an Organized Health Care Education/Training Program; ATTEND Student in an Organized Health Care Education/Training Program